=== PATIENT | female | born 1985 | race Caucasian/White ===

== ENCOUNTER 2016-12-24 06:09 | Inpatient (IN) | payer MEDICAID, OTHER ==
[~2016-12-24] VITALS: Ht 167.6 cm; Wt 49.9 kg
--- NOTE | 2016-12-24 06:25 | NUR ---
PT BIBSELF AMBULATORY TO ER BED 4 PT C/O MID EPIGASTRIC PAIN X 4 DAYS PT DENIES N/V OR DIARRHEA. PT AOX4 RR EVEN AND UNLABORED. NO SOB NOTED. NAD NOTED. NO NVD AT THIS TIME. PT NOT DIAPHORETIC. PT GOWNED AND PLACED ON MONITOR. DR. SANTOS AT BEDSIDE FOR EVAL.
[2016-12-24] MEDS ORDERED: MORPHINE SULFATE INJ 2 MG/ML DISP.SYRIN IV ONE ×3 (06:30→08:00)
[2016-12-24] MEDS ORDERED: ONDANSETRON HCL/PF 4 MG/2 ML VIAL IVP ONE (06:30)
[2016-12-24] MEDS ORDERED: IV NS 0.9% 1,000 ML BAG IV ONE (06:30)
[2016-12-24] MEDS ORDERED: IV SET PRIMARY 1 EA INFUS.SET MC ONE (06:32)
[2016-12-24] MEDS ORDERED: ONDANSETRON HCL/PF 4 MG/2 ML VIAL ONE (06:32)
[2016-12-24] MEDS ORDERED: MORPHINE SULFATE INJ 2 MG/ML DISP.SYRIN ONE ×3 (06:32→07:55)
[2016-12-24] MEDS ORDERED: IV NS 0.9% 1,000 ML ONE (06:32)
[2016-12-24 06:57] LABS: BASOPHILS % (AUTO) 0.5 % (0.0-2.0); EOSINOPHILS % (AUTO) 0.9 % (0.0-6.0); HEMATOCRIT 42 % (33-45); HEMOGLOBIN 14.3 g/dL (11.5-14.8); LYMPHOCYTES # (AUTO) 1.9 /CMM (0.8-4.8); LYMPHOCYTES % (AUTO) 37.7 % (20.0-44.0); MEAN CORPUSCULAR HEMOGLOBIN 32 PG (26.0-33.0); MEAN CORPUSCULAR HGB CONC 34 g/dl (31.0-36.0); MEAN CORPUSCULAR VOLUME 92 fL (82-100); MONOCYTES # (AUTO) 0.4 /CMM (0.1-1.30); MONOCYTES % (AUTO) 8.8 % (2.0-12.0); NEUTROPHILS # (AUTO) 2.6 /CMM (1.8-8.9); NEUTROPHILS % (AUTO) 52.1 % (43.0-81.0); PLATELET COUNT (AUTO) 216 /CMM (150-450); RDW COEFFICIENT OF VARIATION 12.6 (11.5-15.0); RED BLOOD CELL COUNT(AUTO) 4.53 MIL/uL (4.0-5.2)
[2016-12-24 07:03] LABS: APPEARANCE,URINE CLEAR (CLEAR); BILIRUBIN,URINE NEGATIVE (NEGATIVE); BLOOD, URINE TRACE-INTA Ery/uL (NEGATIVE); COLOR,URINE YELLOW (YELLOW); KETONES,URINE TRACE (NEGATIVE); LEUKOCYTE ESTERASE ,URINE NEGATIVE (NEGATIVE); NITRITE, URINE NEGATIVE (NEGATIVE); PROTEIN,URINE NEGATIVE (NEGATIVE); UGLUCOSE NEGATIVE (NEGATIVE); UROBILINOGEN,URINE 0.2 EU/dL (0.2)
[2016-12-24 07:04] LABS: CALCIUM, SERUM 8.7 mg/dL (8.5-10.1); CREATININE 0.9 mg/dL (0.6-1.3); POTASSIUM 3.2 mmol/L (3.5-5.1)
[2016-12-24 07:06] LABS: PREGNANCY TEST URINE QUAL NEGATIVE (NEGATIVE)
[2016-12-24 07:09] LABS: ALBUMIN 3.8 g/dL (3.4-5.0); BILIRUBIN,DIRECT 0.1 mg/dL (0.0-0.2); BILIRUBIN,TOTAL 0.5 mg/dL (0.2-1.0); TOTAL PROTEIN, SERUM 7.7 g/dL (6.4-8.2)
--- NOTE | 2016-12-24 07:12 | NUR ---
REPORT GIVEN TO RN PRASAD FOR CONTINUE OF CARE
[2016-12-24 07:18] LABS: BACTERIA,URINE None seen /HPF (None Seen); RBC,URINE 0-2 /HPF (0-2); SQUAMOUS EPITHELIAL CELL,UR Few /HPF (None Seen); WBC,URINE 0-2 /HPF (0-3)
[2016-12-24] MEDS ORDERED: PANTOPRAZOLE 40 MG VIAL ONE (07:55)
[2016-12-24] MEDS ORDERED: PANTOPRAZOLE 40 MG VIAL IV ONE (08:00)
--- NOTE | 2016-12-24 08:30 | NUR ---
Patient is resting comfortably in bed with eyes closed. Easily aroused. VSS
[2016-12-24] MEDS ORDERED: BARIUM SULFATE SUSP 450 ML BOTTLE PO ONE (08:34)
--- NOTE | 2016-12-24 10:40 | NUR ---
PATIENT TRANSPORTED FOR CT
[2016-12-24] MEDS ORDERED: IV NS 0.9% 250 ML IV ONE (10:46)
[2016-12-24] MEDS ORDERED: IOHEXOL-300 100 ML VIAL IV ONE (10:47)
[2016-12-24] MEDS ORDERED: CT SWABBABLE VALVE TRANS SET 1 EA INFUS.SET MC ONE (10:47)
[2016-12-24] MEDS ORDERED: ETHI1TAB PO (12:04)
--- NOTE | 2016-12-24 12:05 | NUR ---
DR MUHAMMAD AT BEDSIDE FOR CONSULT
[2016-12-24] MEDS ORDERED: IV NS 0.9% 1,000 ML IV PRN (12:18)
[2016-12-24] MEDS ORDERED: Z GUARD REMEDY 2 OZ OINT TP PRN (12:30)
[2016-12-24] MEDS ORDERED: ACETAMINOPHEN 325 MG TABLET PO PRN (12:30)
[2016-12-24] MEDS ORDERED: ONDANSETRON HCL/PF 4 MG/2 ML VIAL IVP PRN (12:30)
[2016-12-24] MEDS ORDERED: MORPHINE SULFATE INJ 2 MG/ML DISP.SYRIN IV PRN (12:30)
[2016-12-24] MEDS ORDERED: ZOLPIDEM TARTRATE 5 MG TABLET PO PRN (12:30)
[2016-12-24] MEDS ORDERED: HYDROCODONE/APAP 5/325MG 1 EACH TABLET PO PRN (12:30)
[2016-12-24] MEDS ORDERED: MAGNESIUM HYDROXIDE 30 ML UDC PO PRN (12:30)
[2016-12-24] MEDS ORDERED: MAG HYDROX/AL HYDROX/SIMETH 30 ML UDC PO PRN (12:30)
--- NOTE | 2016-12-24 12:35 | NUR ---
Patient is resting comfortably in bed with eyes closed. Easily aroused. VSS FAMILY AT BS
--- NOTE | 2016-12-24 13:25 | NUR ---
Patient is resting comfortably in bed with eyes closed. Easily aroused. VSS
[2016-12-24 13:45] VITALS: BP 105/65
[2016-12-24] MEDS ORDERED: IV SET PRIMARY PUMP SET 1 EA INFUS.SET MC ONE (14:08)
--- NOTE | 2016-12-24 14:09 | NUR ---
REPORT GIVEN TO REEMA CORDOBA FOR SANTI MS [id number]
--- NOTE | 2016-12-24 14:10 | NUR ---
MS RN NOTES RECEIVED REPORT
[2016-12-24 14:30] VITALS: BP 105/65
--- NOTE | 2016-12-24 14:30 | NUR ---
MS MANAGER PROVIDER RELATIONS RECEIVED PATIENT A/OX4 DENIES SOB, DIFFICULTY BREATHING OR PAIN AT THIS TIME. NON TENDER ABDOMEN. PER PATIENT SHE WOULD LIKE TO GO HOME TODAY IF EVERYTHING NEGATIVE. MD AWARE. PATIENT STATES NO NEEDS AT THIS TIME AND LEFT WITH CALL LIGHT IN REACH, BED LOWERED AND LOCKED, RAILS UPX3 FOR SAFETY AND WILL ROUND Q2H OR LESS PER NEEDS
--- NOTE | 2016-12-24 15:00 | NUR ---
MS RN NOTES DR KHAN AT BEDSIDE. PER MD ORDER STAT US ABDOMEN
[2016-12-24 16:19] LABS: BASOPHILS % (AUTO) 0.6 % (0.0-2.0); HEMATOCRIT 34 % (33-45); HEMOGLOBIN 11.6 g/dL (11.5-14.8); LYMPHOCYTES # (AUTO) 1.9 /CMM (0.8-4.8); LYMPHOCYTES % (AUTO) 47.9 % (20.0-44.0); MEAN CORPUSCULAR HEMOGLOBIN 32 PG (26.0-33.0); MEAN CORPUSCULAR HGB CONC 34 g/dl (31.0-36.0); MEAN CORPUSCULAR VOLUME 92 fL (82-100); MONOCYTES # (AUTO) 0.4 /CMM (0.1-1.30); MONOCYTES % (AUTO) 9.9 % (2.0-12.0); NEUTROPHILS # (AUTO) 1.6 /CMM (1.8-8.9); NEUTROPHILS % (AUTO) 40.6 % (43.0-81.0); PLATELET COUNT (AUTO) 171 /CMM (150-450); RDW COEFFICIENT OF VARIATION 12.7 (11.5-15.0); RED BLOOD CELL COUNT(AUTO) 3.69 MIL/uL (4.0-5.2); WHITE BLOOD COUNT (AUTO) 3.9 K/uL (4.3-11.0)
--- NOTE | 2016-12-24 18:12 | NUR ---
MS UNIVERSITY PROFESSOR PATIENT STABLE NO COMPLICATIONS NO CHANGES THROUGHOUT SHIFT. PATIENT IV REMOVED PRESSURE AND DRESSING APPLIED NO BLEEDING NOTED. RX GIVEN TO PATIENT FROM MD. AND PATIENT BELONGINGS SIGNED AND ACCOUNTED FOR. PATIENT STATED UNDERSTANDING OF DC MATERIAL AND SIGNED DC PAPERWORK. PATIENT ASSISTED TO CAR BY TOUR ACTOR AND LEFT WITH A FRIEND IN STABLE CONDITION.
[2016-12-25] MEDS ORDERED: PANTOPRAZOLE 40 MG TABLET.DR PO SCH (07:30)
[2016-12-25] MEDS ORDERED: DROSPIRENONE PO SCH (09:00)
[2016-12-25] MEDS ORDERED: ETHINYL ESTRADIOL PO SCH (09:00)
== END 2016-12-24 18:15 | disposition home or self-care (01) | DRG 249 ==
LOC: ER 06:09 → MED 13:50
PROVIDERS: ADMIT Family Medicine; ATTEND Family Medicine
DX: A08.4 Viral intestinal infection, unspecified (principal); E87.6 Hypokalemia; K59.00 Constipation, unspecified; Z98.82 Breast implant status
CPT/HCPCS: 36415; 80048-TC; 80076-TC; 81000-TC; 83690-TC; 84703-TC; 85025-TC; 87081-TC; A4606; C9113; J2270; J2405; J7030; J7050; Q9967; Z7610

== ENCOUNTER 2018-12-24 15:47 | Emergency (ER) | payer MEDICAID ==
[~2018-12-24] VITALS: Ht 167.6 cm; Wt 50.3 kg
[~2018-12-24 15:47] MED LIST: ETHI1TAB PO
[2018-12-24] MEDS ORDERED: TDAP [DIPH/PERTUSSIS/TET] 0.5 ML VIAL IM ONE ×2 (16:18→16:30)
[2018-12-24] MEDS ORDERED: BACI/NEOM/POLY B OINT PKT 1 UDPKT PACKET ONE (16:20)
[2018-12-24 16:31] VITALS: BP 111/64
== END 2018-12-24 16:33 | disposition home or self-care (01) ==
LOC: ER 15:47
DX: S80.861A Insect bite (nonvenomous), right lower leg, initial encounter (principal); L03.115 Cellulitis of right lower limb; Z88.0 Allergy status to penicillin; W57.XXXA Bitten or stung by nonvenomous insect and other nonvenomous arthropods, initial encounter; Y93.89 Activity, other specified; Y92.89 Other specified places as the place of occurrence of the external cause; Y99.8 Other external cause status
CPT/HCPCS: 90715

== ENCOUNTER 2022-03-13 12:54 | Emergency (ER) | payer MEDICAID ==
[~2022-03-13] VITALS: Ht 162.6 cm; Wt 47.6 kg
[2022-03-13] MEDS ORDERED: TDAP [DIPH/PERTUSSIS/TET] 0.5 ML VIAL IM ONE (13:36)
[2022-03-13] MEDS: TDAP [DIPH/PERTUSSIS/TET] 0.5 ML VIAL IM ONE (13:41)
[2022-03-13 13:42] VITALS: BP 100/68
--- NOTE | 2022-03-13 13:42 | NUR ---
Patient discharged to home in stable condition. Written and verbal after care instructions given. Patient verbalizes understanding of instruction.
== END 2022-03-13 13:42 | disposition home or self-care (01) ==
LOC: ER 12:56
DX: S61.011A Laceration without foreign body of right thumb without damage to nail, initial encounter (principal); Z88.0 Allergy status to penicillin; Z79.899 Other long term (current) drug therapy; X58.XXXA Exposure to other specified factors, initial encounter; Y93.89 Activity, other specified; Y92.89 Other specified places as the place of occurrence of the external cause; Y99.8 Other external cause status
CPT/HCPCS: 90715